=== PATIENT | male | born 1935 | race Caucasian/White ===

== ENCOUNTER 2017-06-27 13:12 | Inpatient (IN) | payer MEDICARE, OTHER ==
[2017-06-27] VITALS (308 sets, daily range): BP systolic 130–154; BP diastolic 80–105; PULSE 64–82; TEMP 97.5–98.2; O2SAT 73–100
[~2017-06-27] VITALS: Ht 182.9 cm; Wt 107.4 kg
[~2017-06-27 13:12] MED LIST: ASPIRIN E.C. 8181 MG PO; ATACAND 32 MG PO; CETIRIZINE10 MG PO; EPA-CON500 MG PO; MOBIC15 MG PO; MULTIPLE VITAMI1 CAP PO; NASONEX0.05 MG/AC NS; NIASPAN500 MG PO; PRAVACHOL20 MG PO; PRILOSEC 20MG20 MG PO; SULAR PO; TOPROL XL 50MG50 MG PO
[2017-06-27] MEDS ORDERED: FLONASE NASAL S16 GM NS (13:31)
[2017-06-27] MEDS ORDERED: NORVASC 5MG5 MG/TAB PO (13:33)
[2017-06-27] MEDS ORDERED: DIOVAN 160MG160 MG PO (13:34)
[2017-06-27] MEDS ORDERED: SINGULAIR 110 MG/TAB PO (13:36)
[2017-06-27] MEDS ORDERED: SUDAFED30 MG PO (13:36)
[2017-06-27 13:57] LABS: BASO # 0.1 (0.0-0.2); BASO % 0.8 % (0.0-2.0); EOS # 0.1 (0.0-0.7); EOS % 1.1 % (0-4.0); GRAN # 5.2 (1.4-6.5); GRAN % 65.2 % (42.2-75.2); HEMATOCRIT 47.1 % (42.0-52.0); HEMOGLOBIN 16.2 g/dl (13.5-18.0); LYMPH # 1.7 (1.2-3.4); LYMPH % 21.3 % (20.0-51.0); MEAN CELL VOLUME 98 fl (80.0-100.0); MEAN CORPUSCULAR HEMOGLOBIN 34 pg (27.0-31.0); MEAN CORPUSCULAR HGB CONC 34 g/dl (33.0-37.0); MEAN PLATELET VOLUME 10.4 fl (7.4-10.4); MONO # 0.9 (0.1-0.6); MONO % 11.3 % (1.7-9.3); PLATELET COUNT 178 K/mm3 (130-400); RED BLOOD COUNT 4.82 M/mm3 (4.20-5.60); REDCELL DISTRIBUTION WIDTH-CV 12.2 % (11.5-14.5); WHITE BLOOD COUNT 7.9 K/mm3 (4.8-10.8)
[2017-06-27 14:02] LABS: ADJUSTED CALCIUM 9.1 mg/dL (8.4-10.2); ALBUMIN 4.5 gm/dL (3.5-5.0); BILIRUBIN,TOTAL 1.3 mg/dL (0.0-1.0); CALCIUM 9.5 mg/dL (8.4-10.2); CREATININE, serum 1.02 mg/dL (0.66-1.25); POTASSIUM 4.1 mmol/L (3.4-5.0); TOTAL PROTEIN 7.5 gm/dL (6.4-8.2)
[2017-06-27 14:07] LABS: INR 1.1 (0.8-3.0); PROTHROMBIN TIME 12.7 SECONDS (9.7-12.8)
[2017-06-27 14:10] LABS: PARTIAL THROMBOPLASTIN TIME 27.8 SECONDS (26.0-37.0)
[2017-06-27 14:15] LABS: TROPONIN-I 1.63 ng/mL (0.000-0.034)
[2017-06-28] VITALS (673 sets, daily range): BP systolic 111–131; BP diastolic 66–83; PULSE 61–69; TEMP 97.1–98.1; O2SAT 91–100
[2017-06-28 04:30] LABS: BASO % 0.3 % (0.0-2.0); EOS % 0.3 % (0-4.0); GRAN # 6.6 (1.4-6.5); GRAN % 70.6 % (42.2-75.2); LYMPH # 1.5 (1.2-3.4); LYMPH % 16.1 % (20.0-51.0); MEAN CELL VOLUME 100 fl (80.0-100.0); MEAN CORPUSCULAR HEMOGLOBIN 34 pg (27.0-31.0); MEAN CORPUSCULAR HGB CONC 34 g/dl (33.0-37.0); MEAN PLATELET VOLUME 10.3 fl (7.4-10.4); MONO # 1.2 (0.1-0.6); MONO % 12.4 % (1.7-9.3); PLATELET COUNT 161 K/mm3 (130-400); RED BLOOD COUNT 4.41 M/mm3 (4.20-5.60); REDCELL DISTRIBUTION WIDTH-CV 12.4 % (11.5-14.5); WHITE BLOOD COUNT 9.3 K/mm3 (4.8-10.8)
[2017-06-28 04:39] LABS: CALCIUM 8.7 mg/dL (8.4-10.2); CREATININE, serum 0.87 mg/dL (0.66-1.25); POTASSIUM 4.1 mmol/L (3.4-5.0)
[2017-06-28] MEDS ORDERED: TOPROL XL 50MG50 MG PO (10:28)
[2017-06-28] MEDS ORDERED: BRILINTA90 MG PO (11:09)
[2017-06-28] MEDS ORDERED: ASPIRIN 81M81 MG/TA2 PO (11:09)
[2017-06-28] MEDS ORDERED: TOPROL XL100 MG PO (11:10)
[2017-06-28] MEDS ORDERED: PRAVACHOL 40MG40 MG PO (11:11)
== END 2017-06-28 12:00 | disposition home or self-care (01) | DRG 246 ==
LOC: COL.ER 13:12 → ICU 14:37
PROVIDERS: Family Medicine; Internal Medicine Cardiovascular Disease
PROC: 027037Z Dilation of Coronary Artery, One Artery with Four or More Drug-eluting Intraluminal Devices, Percutaneous Approach (ICD-10-PCS; principal; 2017-06-27)
PROC: B2111ZZ Fluoroscopy of Multiple Coronary Arteries using Low Osmolar Contrast (ICD-10-PCS; 2017-06-27)
DX: I21.4 Non-ST elevation (NSTEMI) myocardial infarction (principal); I10 Essential (primary) hypertension; E78.5 Hyperlipidemia, unspecified; I25.10 Atherosclerotic heart disease of native coronary artery without angina pectoris; Z85.46 Personal history of malignant neoplasm of prostate; Z87.891 Personal history of nicotine dependence
CPT/HCPCS: 99223-AI; 99239; C1725; C1769; C1874; C1887; C1894; C9600; C9601; J0583; J1644; J2250; J3010; Q9967

== ENCOUNTER 2017-07-25 16:03 | Outpatient (RCR) | payer MEDICARE, OTHER ==
[~2017-07-25 16:03] MED LIST changes: +ASPIRIN 81M81 MG/TA2 PO; +BRILINTA90 MG PO; +DIOVAN 160MG160 MG PO; +FLONASE NASAL S16 GM NS; +NORVASC 5MG5 MG/TAB PO; +PRAVACHOL 40MG40 MG PO; +SINGULAIR 110 MG/TAB PO; +SUDAFED30 MG PO; +TOPROL XL100 MG PO
== END 2017-10-12 | disposition home or self-care (01) ==
LOC: COL.CR
DX: Z48.812 Encounter for surgical aftercare following surgery on the circulatory system (principal); Z95.5 Presence of coronary angioplasty implant and graft; I25.10 Atherosclerotic heart disease of native coronary artery without angina pectoris

== ENCOUNTER 2018-03-12 06:35 | Day surgery (SDC) | payer MEDICARE, OTHER ==
[~2018-03-12] VITALS: Ht 182.9 cm; Wt 101.5 kg
[~2018-03-12 06:35] MED LIST changes: -TOPROL XL100 MG PO
[2018-03-12 07:09] LABS: HEMATOCRIT 41.4 % (42.0-52.0); MEAN CELL VOLUME 98 fl (80.0-100.0); MEAN CORPUSCULAR HEMOGLOBIN 33 pg (27.0-31.0); MEAN CORPUSCULAR HGB CONC 34 g/dl (33.0-37.0); MEAN PLATELET VOLUME 10.4 fl (7.4-10.4); PLATELET COUNT 176 K/mm3 (130-400); RED BLOOD COUNT 4.21 M/mm3 (4.20-5.60); REDCELL DISTRIBUTION WIDTH-CV 13.3 % (11.5-14.5)
[2018-03-12] MEDS ORDERED: PRADAXA 150MG150 MG PO (07:13)
[2018-03-12 07:14] VITALS: BP 112/70; PULSE 77; TEMP 98.1
[2018-03-12 07:14] LABS: INR 1.4 (0.8-3.0); PROTHROMBIN TIME 16.3 SECONDS (9.7-12.8)
[2018-03-12 07:28] LABS: CALCIUM 8.9 mg/dL (8.4-10.2); CREATININE, serum 0.98 mg/dL (0.66-1.25); POTASSIUM 3.8 mmol/L (3.4-5.0)
[2018-03-12 08:45] VITALS: BP 105/69; PULSE 71; TEMP 97.9
[2018-03-12 09:00] VITALS: BP 110/73; PULSE 69
[2018-03-12] MEDS ORDERED: MULTAQ400 MG PO (09:02)
[2018-03-12] MEDS ORDERED: TOPROL XL 50MG50 MG PO (09:03)
[2018-03-12 09:15] VITALS: BP 120/93; PULSE 67
[2018-03-12 09:30] VITALS: BP 128/83; PULSE 74
== END 2018-03-12 10:11 | disposition home or self-care (01) ==
LOC: COL.CAR 06:35
PROVIDERS: Internal Medicine Cardiovascular Disease
DX: I48.91 Unspecified atrial fibrillation (principal); I08.0 Rheumatic disorders of both mitral and aortic valves; I25.10 Atherosclerotic heart disease of native coronary artery without angina pectoris; I25.2 Old myocardial infarction; I10 Essential (primary) hypertension; G47.33 Obstructive sleep apnea (adult) (pediatric); Z95.5 Presence of coronary angioplasty implant and graft; Z87.891 Personal history of nicotine dependence; Z85.46 Personal history of malignant neoplasm of prostate; Z79.02 Long term (current) use of antithrombotics/antiplatelets; Z79.82 Long term (current) use of aspirin; Z79.899 Other long term (current) drug therapy; Z80.9 Family history of malignant neoplasm, unspecified; Z82.49 Family history of ischemic heart disease and other diseases of the circulatory system
CPT/HCPCS: G9654; J2704; J7120

== ENCOUNTER 2018-05-18 10:44 | Inpatient (IN) | payer MEDICARE, OTHER ==
[~2018-05-18] VITALS: Ht 180.3 cm; Wt 100.0 kg
[~2018-05-18 10:44] MED LIST changes: -CETIRIZINE10 MG PO; +MULTAQ400 MG PO; +PRADAXA 150MG150 MG PO; +ZYRTEC 10MG10 MG PO
[2018-05-26 08:22] VITALS: BP 135/77; PULSE 72; TEMP 97.6
[2018-05-26] MEDS ORDERED: CRESTOR20 MG PO (08:57)
[2018-05-26 09:47] LABS: INR 1.4 (0.8-3.0); PROTHROMBIN TIME 16.3 SECONDS (9.7-12.8)
[2018-05-26 09:52] LABS: BILIRUBIN,TOTAL 0.7 mg/dL (0.0-1.0); CALCIUM 8.7 mg/dL (8.4-10.2); CREATININE, serum 1.04 mg/dL (0.66-1.25); MAGNESIUM 2.2 mg/dL (1.6-2.3); POTASSIUM 4.1 mmol/L (3.4-5.0); TOTAL PROTEIN 6.7 gm/dL (6.4-8.2)
[2018-05-26 10:01] LABS: BASO % 0.7 % (0.0-2.0); EOS # 0.3 (0.0-0.7); EOS % 4.1 % (0-4.0); GRAN # 3.7 (1.4-6.5); GRAN % 60.7 % (42.2-75.2); HEMATOCRIT 42.1 % (42.0-52.0); HEMOGLOBIN 14.1 g/dl (13.5-18.0); LYMPH # 1.4 (1.2-3.4); LYMPH % 23.2 % (20.0-51.0); MEAN CELL VOLUME 98 fl (80.0-100.0); MEAN CORPUSCULAR HEMOGLOBIN 33 pg (27.0-31.0); MEAN CORPUSCULAR HGB CONC 34 g/dl (33.0-37.0); MEAN PLATELET VOLUME 10.4 fl (7.4-10.4); MONO # 0.7 (0.1-0.6); PLATELET COUNT 172 K/mm3 (130-400); RED BLOOD COUNT 4.29 M/mm3 (4.20-5.60); REDCELL DISTRIBUTION WIDTH-CV 12.7 % (11.5-14.5)
[2018-05-26 12:58] VITALS: BP 132/62; PULSE 64; TEMP 97.2
[2018-05-26 17:12] VITALS: BP 144/85; PULSE 62; TEMP 97.5
[2018-05-26 20:25] VITALS: BP 168/83; PULSE 64; TEMP 97.9
[2018-05-27 04:15] VITALS: BP 128/80; PULSE 60; TEMP 98.1
[2018-05-27 07:18] VITALS: BP 122/82; PULSE 70; TEMP 98.3
[2018-05-27 07:20] LABS: BASO # 0.1 (0.0-0.2); BASO % 0.8 % (0.0-2.0); EOS # 0.2 (0.0-0.7); EOS % 3.8 % (0-4.0); GRAN # 3.6 (1.4-6.5); GRAN % 56.7 % (42.2-75.2); HEMATOCRIT 45.4 % (42.0-52.0); HEMOGLOBIN 15.7 g/dl (13.5-18.0); LYMPH # 1.7 (1.2-3.4); LYMPH % 27.1 % (20.0-51.0); MEAN CELL VOLUME 97 fl (80.0-100.0); MEAN CORPUSCULAR HEMOGLOBIN 34 pg (27.0-31.0); MEAN CORPUSCULAR HGB CONC 35 g/dl (33.0-37.0); MEAN PLATELET VOLUME 10.2 fl (7.4-10.4); MONO # 0.7 (0.1-0.6); MONO % 11.3 % (1.7-9.3); PLATELET COUNT 183 K/mm3 (130-400); RED BLOOD COUNT 4.69 M/mm3 (4.20-5.60); REDCELL DISTRIBUTION WIDTH-CV 12.5 % (11.5-14.5)
[2018-05-27 07:27] LABS: INR 1.3 (0.8-3.0); PROTHROMBIN TIME 15.2 SECONDS (9.7-12.8)
[2018-05-27 07:28] LABS: CALCIUM 8.9 mg/dL (8.4-10.2); CREATININE, serum 1.06 mg/dL (0.66-1.25); MAGNESIUM 2.2 mg/dL (1.6-2.3); POTASSIUM 3.9 mmol/L (3.4-5.0)
[2018-05-27 11:47] VITALS: BP 132/80; PULSE 55; TEMP 98.3
[2018-05-27 15:26] VITALS: BP 130/78; PULSE 63; TEMP 98.6
[2018-05-27 20:46] VITALS: BP 155/85; PULSE 84; TEMP 97.9
[2018-05-27 23:52] VITALS: BP 135/78; PULSE 61; TEMP 97.5
[2018-05-28 04:02] VITALS: BP 124/79; PULSE 52; TEMP 97.7
[2018-05-28 07:33] LABS: BASO # 0.1 (0.0-0.2); BASO % 0.8 % (0.0-2.0); EOS # 0.2 (0.0-0.7); EOS % 3.5 % (0-4.0); GRAN # 3.6 (1.4-6.5); GRAN % 57.2 % (42.2-75.2); HEMATOCRIT 47.2 % (42.0-52.0); LYMPH # 1.7 (1.2-3.4); LYMPH % 27.5 % (20.0-51.0); MEAN CELL VOLUME 98 fl (80.0-100.0); MEAN CORPUSCULAR HEMOGLOBIN 33 pg (27.0-31.0); MEAN CORPUSCULAR HGB CONC 34 g/dl (33.0-37.0); MEAN PLATELET VOLUME 10.5 fl (7.4-10.4); MONO # 0.7 (0.1-0.6); MONO % 10.5 % (1.7-9.3); PLATELET COUNT 197 K/mm3 (130-400); RED BLOOD COUNT 4.83 M/mm3 (4.20-5.60); REDCELL DISTRIBUTION WIDTH-CV 12.6 % (11.5-14.5)
[2018-05-28 07:40] LABS: INR 1.3 (0.8-3.0); PROTHROMBIN TIME 14.7 SECONDS (9.7-12.8)
[2018-05-28 07:47] LABS: CALCIUM 8.9 mg/dL (8.4-10.2); CREATININE, serum 1.09 mg/dL (0.66-1.25); MAGNESIUM 2.2 mg/dL (1.6-2.3); POTASSIUM 3.8 mmol/L (3.4-5.0)
[2018-05-28 08:21] VITALS: BP 101/68; PULSE 70; TEMP 98
[2018-05-28 11:19] VITALS: BP 123/87; PULSE 68
[2018-05-28] MEDS ORDERED: BETAPACE 120MG120 MG PO (11:38)
== END 2018-05-28 13:35 | disposition home or self-care (01) | DRG 310 ==
LOC: MEDICAL 05-26 08:07
PROVIDERS: Internal Medicine Cardiovascular Disease
DX: I48.91 Unspecified atrial fibrillation (principal); I08.0 Rheumatic disorders of both mitral and aortic valves; E78.5 Hyperlipidemia, unspecified; I25.10 Atherosclerotic heart disease of native coronary artery without angina pectoris; G47.33 Obstructive sleep apnea (adult) (pediatric); I10 Essential (primary) hypertension; I25.2 Old myocardial infarction; Z95.5 Presence of coronary angioplasty implant and graft

== ENCOUNTER → 2019-11-29 | Outpatient (CLI) | payer MEDICARE, OTHER ==
[~2019-11-29] MED LIST changes: +BETAPACE 120MG120 MG PO; +CRESTOR20 MG PO
== END ==
LOC: COL.RAD 06:54
DX: C18.7 Malignant neoplasm of sigmoid colon (principal)
CPT/HCPCS: Q9967

== ENCOUNTER 2019-12-13 09:58 | Inpatient (IN) | payer MEDICARE, OTHER ==
[~2019-12-13] VITALS: Ht 182.9 cm; Wt 107.2 kg
[2019-12-28] VITALS (11 sets, daily range): BP systolic 128–149; BP diastolic 74–92; PULSE 64–84; TEMP 97.5–98.2
--- NOTE | 2019-12-28 08:11 | NUR ---
TO RM AT 0723- CALL LIGHT IN REACH AT BEDSIDE
[2019-12-28] MEDS ORDERED: BETAPACE 120MG120 MG PO (08:18)
[2019-12-28] MEDS ORDERED: PLAVIX 75MG TAB75 MG PO (08:19)
[2019-12-28] MEDS ORDERED: OMEGA-3 1000 MG1 CAP PO (08:20)
[2019-12-28] MEDS ORDERED: COZAAR100 MG PO (08:21)
--- NOTE | 2019-12-28 13:00 | NUR ---
Patient is back from surgery. Minimal complaints of pain to his lower abdomen. Denies nausea. Hernadez secured to leg, urine is yellow and clear. His family is at bedside. Oriented patient to room. No other changes at this time. Call light within reach.
--- NOTE | 2019-12-28 18:30 | NUR ---
Patient has been doing well this afternoon. He got up once to the bathroom. Did not pass flatus or have a bowel movement. Denies pain and nausea. No other changes at this time. Call light within reach. His is at bedside.
--- NOTE | 2019-12-28 23:02 | NUR ---
Drainage noted to low transverse incision. Dressing saturated and changed by Dr. Hou. 3 hours later, dressing assessed and some drainage noted to bandage. Will continue to monitor dressing for continued drainage. All lap sites remain CDI. IVF continue to left hand. Hernadez catheter draining clear yellow urine. Patient denies pain. Will continue to monitor.
[2019-12-29 00:34] VITALS: BP 110/67; PULSE 77; TEMP 98.5
--- NOTE | 2019-12-29 01:16 | NUR ---
Dressing to low transverse incision noted to have moderate amount of drainage present. Old dressing removed. Gauze placed and foam tape placed over incision. Lap sites remain CDI covered with bandaids. Will continue to monitor patient. Continues to deny pain.
[2019-12-29 04:23] VITALS: BP 121/61; PULSE 60; TEMP 97.6
[2019-12-29 07:34] LABS: HEMATOCRIT 38.6 % (42.0-52.0); HEMOGLOBIN 13.3 g/dl (13.5-18.0)
[2019-12-29 07:49] LABS: CALCIUM 8.4 mg/dL (8.4-10.2); CREATININE, serum 0.87 (0.66-1.25); POTASSIUM 3.7 mmol/L (3.4-5.0)
[2019-12-29 09:00] VITALS: BP 109/65; PULSE 64; TEMP 98.3
--- NOTE | 2019-12-29 11:25 | NUR ---
Patient resting in bed. Patient spouse at bedside. We ambulated the halls, he did very well. rounded. Plans to continue with clear liquids, denies n/v. Satya Unger. Abdominal incisions dressing intact. Will monitor
--- NOTE | 2019-12-29 11:29 | NUR ---
SERGEY met with the patient and his , Brissa (ph#[phone]), to discuss discharge plan. The patient lives in [place] with his . He reports independence with ADLs and has a cane, walker, and wheelchair available if needed. The patient's PCP is Dr. Florence Bazan and he receives his medications at [facility]. He reports no difficulties obtaining his meds. The patient's advanced directives are in his chart. The patient's DPOA-HC is his . The patient plans to return home with his upon discharge. No additional needs at this time.
[2019-12-29 12:58] VITALS: BP 125/68; PULSE 66; TEMP 98.2
--- NOTE | 2019-12-29 13:00 | NUR ---
First visit from the home health speech therapist. No needs right now.
[2019-12-29 16:38] VITALS: BP 122/68; PULSE 63; TEMP 97.5
--- NOTE | 2019-12-29 19:03 | NUR ---
Patient sitting up in chair. He was disappointed in his clear liquid dinner tray, notifed & he was progressed to low fiber diet. Tolerated dinner well. Patient reports 2 bowels movements this afternoon & voiding without difficulty. Abdominal incisions bandaid & occlusive drg intact. Scds. Bedside report to night nurse
--- NOTE | 2019-12-29 21:00 | NUR ---
Pt ambulated down the [address] way very well. Pt has no concerns at this time. Pt son was at bedside. Call light is within reach
[2019-12-29 22:00] VITALS: BP 127/64; PULSE 71; TEMP 98.5
[2019-12-30 04:00] VITALS: BP 155/81; PULSE 69; TEMP 97.8
[2019-12-30 07:16] VITALS: BP 141/79; PULSE 76; TEMP 98.1
[2019-12-30 11:19] VITALS: BP 145/78; PULSE 68; TEMP 97.6
--- NOTE | 2019-12-30 13:15 | NUR ---
DISCHARGE INFORMATION PROVIDED TO PT. ALL QUESTIONS VOICED. NO C/O PAIN AT THIS TIME. PROVIDED PT WITH PT EDUCATINS ABOUT DIET FOR LOW FIBER. PROVIDER REMOVED DRESSING THIS AM. [employer] INSPECTOR ESCORTED PT SANJANA, WAS AT BEDSIDE AND DRIVING PT HOME. STUDENT TALITA REMOVED PTS IV, NO ISSUES WHERE VOICED FROM IV REMOVAL.
== END 2019-12-30 13:20 | disposition home or self-care (01) | DRG 331 ==
LOC: INPTSU 12-28 07:18 → SURG 12-28 09:00
PROVIDERS: ADMIT Surgery
PROC: 0DTN4ZZ Resection of Sigmoid Colon, Percutaneous Endoscopic Approach (ICD-10-PCS; principal; 2019-12-28 09:00)
DX: C18.7 Malignant neoplasm of sigmoid colon (principal); I25.10 Atherosclerotic heart disease of native coronary artery without angina pectoris; I10 Essential (primary) hypertension; Z79.02 Long term (current) use of antithrombotics/antiplatelets; I48.91 Unspecified atrial fibrillation
CPT/HCPCS: A4314; A9284; J0690; J1100; J1650; J2250; J2405; J2704; J3010; J7120

== ENCOUNTER 2020-05-23 10:11 | Day surgery (SDC) | payer MEDICARE, OTHER ==
[~2020-05-23] VITALS: Ht 182.9 cm; Wt 107.6 kg
[~2020-05-23 10:11] MED LIST changes: +COZAAR100 MG PO; +OMEGA-3 1000 MG1 CAP PO; +PLAVIX 75MG TAB75 MG PO
[2020-05-23] MEDS ORDERED: BENICAR40 MG PO (10:46)
[2020-05-23] MEDS ORDERED: ELIQUIS 5MG PO (10:47)
[2020-05-23 10:48] VITALS: BP 137/104; PULSE 122; TEMP 98
[2020-05-23 10:51] LABS: HEMATOCRIT 47.7 % (42.0-52.0); HEMOGLOBIN 16.2 g/dl (13.5-18.0); MEAN CELL VOLUME 97 fl (80.0-100.0); MEAN CORPUSCULAR HEMOGLOBIN 33 pg (27.0-31.0); MEAN CORPUSCULAR HGB CONC 34 g/dl (33.0-37.0); MEAN PLATELET VOLUME 10.5 fl (7.4-10.4); PLATELET COUNT 159 K/mm3 (130-400); RED BLOOD COUNT 4.91 M/mm3 (4.20-5.60); REDCELL DISTRIBUTION WIDTH-CV 12.1 % (11.5-14.5)
[2020-05-23 11:01] LABS: CALCIUM 9.5 mg/dL (8.4-10.2); CREATININE, serum 1.06 (0.66-1.25); MAGNESIUM 2.3 mg/dL (1.6-2.3); PARTIAL THROMBOPLASTIN TIME 39.2 SECONDS (26.0-37.0); POTASSIUM 4.2 mmol/L (3.4-5.0)
[2020-05-23 11:31] LABS: THYROID STIMULATING HORMONE 1.34 uIU/mL (0.465-4.680)
[2020-05-23 11:55] VITALS: BP 103/83; PULSE 81
--- NOTE | 2020-05-23 11:55 | NUR ---
BS report received from Fernando SULTANA. Pt remains in afib on monitor after 3 shocks. Pt is awake and alert, pwd, respirations are reg and unlabored at this time. pt is sitting up working on [employer]. no distress. wctm.
[2020-05-23 12:10] VITALS: BP 117/85; PULSE 107
[2020-05-23 12:25] VITALS: BP 115/56; PULSE 99
[2020-05-23 13:00] VITALS: BP 144/86; PULSE 104
[2020-05-23] MEDS ORDERED: BETAPACE160 MG PO (13:18)
--- NOTE | 2020-05-23 14:00 | NUR ---
Pt is ready for departure. PT has done well during his recovery, he has remained awake and alert, pwd, in AFIB on monitor. Dr. Alvarez has been back in to discuss poc with patient. Pt was instructed to go to cardiology office on the way home to discuss plan regarding his medication regimine. iv is dc'd with cath intact, dressing applied. pt otherwise verbalized understanding of dc/fu instructions. to exit via w/c at this time.
== END 2020-05-23 14:00 | disposition home or self-care (01) ==
LOC: COL.CAR 10:11
PROVIDERS: Internal Medicine Cardiovascular Disease
DX: I48.0 Paroxysmal atrial fibrillation (principal); I10 Essential (primary) hypertension; E78.5 Hyperlipidemia, unspecified; K21.9 Gastro-esophageal reflux disease without esophagitis; G47.33 Obstructive sleep apnea (adult) (pediatric); Z85.038 Personal history of other malignant neoplasm of large intestine; Z85.46 Personal history of malignant neoplasm of prostate; Z95.5 Presence of coronary angioplasty implant and graft; Z98.62 Peripheral vascular angioplasty status; Z86.79 Personal history of other diseases of the circulatory system; Z79.82 Long term (current) use of aspirin; Z79.899 Other long term (current) drug therapy; Z88.8 Allergy status to other drugs, medicaments and biological substances

== ENCOUNTER 2020-07-11 10:01 | Day surgery (SDC) | payer MEDICARE, OTHER ==
[~2020-07-11] VITALS: Ht 183 cm; Wt 107.9 kg
[2020-07-11] VITALS (8 sets, daily range): BP systolic 136–180; BP diastolic 81–129; PULSE 54–107; TEMP 97.7–98.1
[~2020-07-11 10:01] MED LIST changes: +BENICAR40 MG PO; +BETAPACE160 MG PO; +ELIQUIS 5MG PO
[2020-07-11] MEDS ORDERED: PACERONE200 MG PO (10:52)
[2020-07-11] MEDS ORDERED: TOPROL XL100 MG PO (10:53)
[2020-07-11 11:28] LABS: HEMATOCRIT 47.7 % (42.0-52.0); HEMOGLOBIN 16.2 g/dl (13.5-18.0); MEAN CELL VOLUME 97 fl (80.0-100.0); MEAN CORPUSCULAR HEMOGLOBIN 33 pg (27.0-31.0); MEAN CORPUSCULAR HGB CONC 34 g/dl (33.0-37.0); MEAN PLATELET VOLUME 10.5 fl (7.4-10.4); PLATELET COUNT 151 K/mm3 (130-400); RED BLOOD COUNT 4.94 M/mm3 (4.20-5.60)
[2020-07-11 11:30] LABS: CALCIUM 9.2 mg/dL (8.4-10.2); CREATININE, serum 1.14 (0.66-1.25); MAGNESIUM 2.2 mg/dL (1.6-2.3)
[2020-07-11 11:31] LABS: INR 2.1 (0.8-3.0); PROTHROMBIN TIME 23.2 SECONDS (9.7-12.8)
[2020-07-11 11:34] LABS: PARTIAL THROMBOPLASTIN TIME 37.5 SECONDS (26.0-37.0)
[2020-07-11 11:59] LABS: THYROID STIMULATING HORMONE 1.29 uIU/mL (0.465-4.680)
--- NOTE | 2020-07-11 12:45 | NUR ---
Report from Vincent SULTANA. Pt resting in bed, alert and oriented, denies pain at this time. Apresoline ordered for blood pressure
--- NOTE | 2020-07-11 13:30 | NUR ---
10 mg Apresoline given IV.
--- NOTE | 2020-07-11 14:30 | NUR ---
VSS. Blood pressure at 136/82 at this time
--- NOTE | 2020-07-11 15:00 | NUR ---
INT discontinued intact. Discharge instructions given. Transferred to private car by adams
== END 2020-07-11 15:00 | disposition home or self-care (01) ==
LOC: COL.CAR 10:01
PROVIDERS: Internal Medicine Cardiovascular Disease
DX: I48.0 Paroxysmal atrial fibrillation (principal); I25.10 Atherosclerotic heart disease of native coronary artery without angina pectoris; I25.2 Old myocardial infarction; I10 Essential (primary) hypertension; I08.3 Combined rheumatic disorders of mitral, aortic and tricuspid valves; E78.2 Mixed hyperlipidemia; G47.33 Obstructive sleep apnea (adult) (pediatric); K21.9 Gastro-esophageal reflux disease without esophagitis; M19.90 Unspecified osteoarthritis, unspecified site; Z20.828 Contact with and (suspected) exposure to other viral communicable diseases; Z85.038 Personal history of other malignant neoplasm of large intestine; Z95.5 Presence of coronary angioplasty implant and graft; Z85.46 Personal history of malignant neoplasm of prostate; Z96.653 Presence of artificial knee joint, bilateral; Z93.3 Colostomy status; Z79.01 Long term (current) use of anticoagulants; Z79.82 Long term (current) use of aspirin; Z79.899 Other long term (current) drug therapy; Z87.891 Personal history of nicotine dependence
CPT/HCPCS: J0360; J2704

== ENCOUNTER → 2021-02-01 | Outpatient (CLI) | payer MEDICARE, OTHER ==
[~2021-02-01] MED LIST changes: +PACERONE200 MG PO; +TOPROL XL100 MG PO
== END ==
LOC: ZCOL.LAB 10:27
DX: Z01.812 Encounter for preprocedural laboratory examination (principal); Z20.822 Contact with and (suspected) exposure to COVID-19

== ENCOUNTER 2023-12-23 13:30 | Outpatient (RCR) | payer MEDICARE, OTHER | END 2023-12-25 | disposition home or self-care (01) | LOC: MKS.ESL.PT | DX: R93.7 Abnormal findings on diagnostic imaging of other parts of musculoskeletal system (principal); M54.50 Low back pain, unspecified; G89.29 Other chronic pain ==